=== PATIENT | male | born 1965 | race Caucasian/White ===

== ENCOUNTER 2016-07-15 10:37 | Outpatient (CLI) ==
[2016-07-15 11:00] LABS: BASOPHILS # (AUTO) 0.1 K/uL (0-0.2); BASOPHILS % (AUTO) 1.1 % (0.0-3.0); EOSINOPHILS # (AUTO) 0.1 K/ul (0.0-0.7); EOSINOPHILS % (AUTO) 2.8 % (0.0-7.0); HEMATOCRIT 44.7 % (42.0-52.0); HEMOGLOBIN 15.3 g/dl (14.0-18.0); IMMATURE GRANULOCYTE % (AUTO) 0.4 % (0.0-5.0); LYMPHOCYTES # (AUTO) 1.5 K/uL (0.60-3.4); LYMPHOCYTES % (AUTO) 31.5 (10.0-50.0); MEAN CORPUSCULAR HEMOGLOBIN 32.8 pg (27.0-31.0); MEAN CORPUSCULAR HGB CONC 34.2 (31.8-35.4); MEAN CORPUSCULAR VOLUME 95.9 fl (80.0-94.0); MONOCYTES # (AUTO) 0.5 K/uL (0.4-2.0); MONOCYTES % (AUTO) 9.8 (0-10); NEUTROPHILS # (AUTO) 2.6 K/ul (2.0-6.9); NEUTROPHILS % (AUTO) 54.4; PLATELET COUNT 247 10^3/uL (140-440); RED BLOOD COUNT 4.66 10^6/ul (4.70-6.10)
[2016-07-15 11:16] LABS: ALBUMIN 4.4 g/dL (3.4-5.0); ALBUMIN/GLOBULIN RATIO 1.38; ANION GAP 12.8; BILIRUBIN,TOTAL 1.37 mg/dL (0.00-1.20); BUN/CREATININE RATIO 8.33; CHOL/HDL RATIO 2.3 (4.5-6.4); CREATININE 0.96 mg/dL (0.60-1.10); POTASSIUM 4.8 mmol/L (3.5-5.1); TOTAL PROTEIN 7.6 g/dL (6.4-8.2)
== END 2016-07-15 10:38 | disposition home or self-care (01) ==
LOC: LAB 10:37
PROVIDERS: ATTEND Family Medicine
DX: E78.00 Pure hypercholesterolemia, unspecified (principal); I10 Essential (primary) hypertension
CPT/HCPCS: 36415; 80053; 80061; 85025

== ENCOUNTER 2016-07-19 11:22 | Outpatient (CLI) ==
--- NOTE | 2016-07-19 12:50 | DI ---
EXAM: PA and lateral views of the chest HISTORY: Fall with left-sided rib pain COMPARISON: Same day left rib x-rays FINDINGS: The cardiomediastinal silhouette is normal. There is no pneumothorax or pleural effusion . There is no consolidation, nodule or mass. The osseous structures demonstrate minimal cortical i rregularity of the left anterior lateral ninth rib. No additional rib fracture is identified. IMPRESSION: Questionable left anterior lateral ninth rib fracture.
--- NOTE | 2016-07-19 13:13 | DI ---
EXAM: Radiographs, left rib HISTORY: Initial presentation of left rib pain following a fall. COMPARISON: None available. TECHNIQUE: Five views. FINDINGS/IMPRESSION: Mildly displaced left lateral ninth rib fracture noted. No pleural effusion or pneumothorax identif ied.
== END 2016-07-19 11:23 | disposition home or self-care (01) ==
LOC: RAD 11:22
PROVIDERS: ATTEND Family Medicine
DX: R07.89 Other chest pain (principal); W19.XXXA Unspecified fall, initial encounter

== ENCOUNTER 2016-09-01 09:48 | Outpatient (CLI) ==
--- NOTE | 2016-09-01 10:15 | DI ---
EXAM: Three views of the left hand. History: Left hand pain. Findings: No acute fracture or dislocation. No abnormal calcifications or radiopaque foreign joselo s. Joint spaces are relatively preserved. There is some periarticular osteopenia. No batool erosiv e osseous changes. Impression: No acute findings.. Periarticular osteopenia which can be a secondary sign of rheumato id arthritis. Correlate with laboratory values.
[2016-09-01 10:16] LABS: BASOPHILS % (AUTO) 0.8 % (0.0-3.0); EOSINOPHILS # (AUTO) 0.1 K/ul (0.0-0.7); EOSINOPHILS % (AUTO) 1.9 % (0.0-7.0); HEMATOCRIT 44.8 % (42.0-52.0); HEMOGLOBIN 15.5 g/dl (14.0-18.0); IMMATURE GRANULOCYTE % (AUTO) 0.6 % (0.0-5.0); LYMPHOCYTES # (AUTO) 1.3 K/uL (0.60-3.4); LYMPHOCYTES % (AUTO) 27.6 (10.0-50.0); MEAN CORPUSCULAR HEMOGLOBIN 32.6 pg (27.0-31.0); MEAN CORPUSCULAR HGB CONC 34.6 (31.8-35.4); MEAN CORPUSCULAR VOLUME 94.1 fl (80.0-94.0); MONOCYTES # (AUTO) 0.5 K/uL (0.4-2.0); NEUTROPHILS # (AUTO) 2.8 K/ul (2.0-6.9); NEUTROPHILS % (AUTO) 59.1; PLATELET COUNT 249 10^3/uL (140-440); RED BLOOD COUNT 4.76 10^6/ul (4.70-6.10); WHITE BLOOD COUNT 4.71 K/ul (4.2-10.2)
--- NOTE | 2016-09-01 10:17 | DI ---
EXAM: Three views of the right hand. History: Right hand pain. Findings: No acute fracture or dislocation. Periarticular osteopenia. Joint spaces are relatively preserved. There is a flexion deformity of the fifth digit. No radiopaque foreign bodies. Impression: 1. No acute osseous abnormalities. 2. Periarticular osteopenia which is a secondary sign of rheumatoid arthritis. Correlate with labo ratory values. 3. Flexion deformity of the fifth digit.
[2016-09-01 10:20] LABS: BILIRUBIN,URINE Negative (NEGATIVE); KETONES,URINE Negative (NEGATIVE); LEUKOCYTE ESTERASE ,URINE Negative (NEGATIVE); NITRITE,URINE Negative (NEGATIVE); PROTEIN,URINE Negative (NEGATIVE); URINE, BLOOD Negative (NEGATIVE)
[2016-09-01 10:22] LABS: ADD URINE MICROSCOPIC NO
[2016-09-01 10:34] LABS: ALBUMIN 4.3 g/dL (3.4-5.0); ALBUMIN/GLOBULIN RATIO 1.34; ANION GAP 13.5; BILIRUBIN,TOTAL 1.05 mg/dL (0.00-1.20); CALCIUM 9.8 mg/dL (8.2-10.2); CHOL/HDL RATIO 2.6 (4.5-6.4); CREATININE 0.9 mg/dL (0.60-1.10); POTASSIUM 4.5 mmol/L (3.5-5.1); TOTAL PROTEIN 7.5 g/dL (6.4-8.2)
== END 2016-09-01 09:49 | disposition home or self-care (01) ==
LOC: RAD 09:48
PROVIDERS: ATTEND Family Medicine
DX: M20.001 Unspecified deformity of right finger(s) (principal); M20.002 Unspecified deformity of left finger(s); I10 Essential (primary) hypertension; E78.00 Pure hypercholesterolemia, unspecified; K70.0 Alcoholic fatty liver
CPT/HCPCS: 36415; 80053; 80061; 81001; 85025; 86430